=== PATIENT | male | born 1975 | race Caucasian/White ===

== ENCOUNTER 2025-01-15 16:12 | Emergency (ER) | payer OTHER ==
[~2025-01-15] VITALS: Ht 180.3 cm; Wt 129.3 kg
[2025-01-15] MEDS ORDERED: LISINOPRIL20 MG PO (16:20)
[2025-01-15] MEDS ORDERED: OMEPRAZOLE MAGN20 MG PO (16:21)
[2025-01-15] MEDS ORDERED: GABAPENTIN600 MG PO (16:21)
[2025-01-15] MEDS ORDERED: XARELTO1 EACH PO (16:22)
[2025-01-15] MEDS ORDERED: HYDROXYCHLOROQ200 M1 PO (16:23)
[2025-01-15] MEDS ORDERED: IOHEXOL 300 MG/ML 100 ML VIAL IV ONE (16:45)
[2025-01-15 16:57] LABS: BASO % 0.5 % (0.0-1.0); EOS # 0.2 10*3/uL (0.0-0.4); EOS % 1.9 % (1.0-4.0); HEMATOCRIT 41.8 % (42.0-52.0); MEAN CELL VOLUME 99.5 fl (80.0-94.0); MEAN CORPUSCULAR HGB 33.6 pg (27.0-31.0); MEAN CORPUSCULAR HGB CONC 33.7 g/dl (33.0-37.0); MEAN PLATELET VOLUME 9.7 fl (9.6-12.3); MONO # 0.6 10*3/uL (0.1-1.0); MONO % 7.4 % (3.0-9.0); NEUT # 6.3 10*3/uL (2.3-7.9); NEUT % 73.4 % (47.0-73.0); PLATELET COUNT AUTOMATED 277 10*3/uL (130-400); RED CELL DISTRI WIDTH 13.4 % (0-14.5); WHITE BLOOD COUNT 8.5 10*3/uL (4.8-10.8)
[2025-01-15 17:34] LABS: BILIRUBIN Negative (Negative); BLOOD Negative (Negative); CLARITY Cloudy (Clear); COLOR Yellow (Yellow); GLUCOSE Negative (Negative); KETONE Trace (Negative); LEUKO ESTERASE 3+ (Negative); NITRITE Negative (Negative); PH 5.5 (4.5-8.0)
[2025-01-15 17:42] LABS: ACT PARTIAL THROMBO TIME 27.9 SECONDS (20.0-32.1)
[2025-01-15 17:45] LABS: ALKALINE PHOSPHATASE 72 U/L (46-116); BUN 9 mg/dl (9-23); CHLORIDE 108 mmol/L (98-107); LIPASE 175 U/L (12-53); POTASSIUM 3.8 mmol/L (3.4-5.1); SGPT/ALT 7 U/L (5-49); TOTAL PROTEIN 7.3 gm/dL (6.0-8.0)
[2025-01-15 17:49] LABS: BACTERIA 1+; RBC 0-2 rbc/hpf (0-2); WBC 51-100 wbc/hpf (0-5)
[2025-01-15] MEDS ORDERED: metroNIDAZOLE 500 MG TAB PO ONE (17:55)
[2025-01-15] MEDS ORDERED: cefTRIAXone Sodium 1 GM/10 ML SYR IV ONE (17:55)
[2025-01-15] MEDS ORDERED: SUCRALFATE 1 GM TAB PO ONE (18:55)
[2025-01-15] MEDS ORDERED: Pantoprazole Sodium 40 MG TAB PO ONE (18:55)
[2025-01-15] MEDS ORDERED: VIBRAMYCIN100 MG PO (19:08)
[2025-01-15] MEDS ORDERED: CARAFATE1 G1 PO (19:08)
[2025-01-15] MEDS ORDERED: PROTONIX40 MG PO (19:08)
== END 2025-01-15 19:39 | disposition home or self-care (01) ==
LOC: ED 16:12
PROVIDERS: Internal Medicine
DX: K29.70 Gastritis, unspecified, without bleeding (principal); N39.0 Urinary tract infection, site not specified; Z79.899 Other long term (current) drug therapy

== ENCOUNTER 2025-04-29 17:22 | Inpatient (IN) | payer SELFPAY ==
[~2025-04-29] VITALS: Ht 180.3 cm; Wt 129.9 kg
[~2025-04-29 17:22] MED LIST: CARAFATE1 G1 PO; GABAPENTIN600 MG PO; HYDROXYCHLOROQ200 M1 PO; LISINOPRIL20 MG PO; OMEPRAZOLE MAGN20 MG PO; PROTONIX40 MG PO; VIBRAMYCIN100 MG PO; XARELTO1 EACH PO
[2025-04-29 17:28] VITALS: BP 139/91
[2025-04-29] MEDS ORDERED: Ondansetron Hydrochloride 4 MG/2 ML VIAL IV ONE (17:40)
[2025-04-29 17:56] LABS: MEAN CORPUSCULAR HGB 38.9 pg (27.0-31.0); NUCLEATED RED BLOOD CELL 0.0 % (0.0-0.0); NUCLEATED RED BLOOD CELL 0.0 10*3/uL (0.0-0.0)
[2025-04-29 18:11] LABS: MEAN CELL VOLUME 110.2 fl (80.0-94.0); MEAN PLATELET VOLUME 9.7 fl (9.6-12.3); PLATELET COUNT AUTOMATED 93 10*3/uL (130-400); RED CELL DISTRI WIDTH 16.3 % (0-14.5)
[2025-04-29 18:13] LABS: MANUAL DIFF REFLEX YES
[2025-04-29 18:15] LABS: BUN 12 mg/dl (9-23); CPK 31 U/L (34-171)
[2025-04-29 18:17] LABS: PLATELET SUFFICIENCY LOW (NORMAL)
[2025-04-29] MEDS ORDERED: CALCIUM (TUMS) 500MG PO ONE (18:25)
[2025-04-29] MEDS ORDERED: MAGNESIUM SULFATE 50 ML IV ONE (18:25)
[2025-04-29] MEDS ORDERED: HYDROmorphONE Hydrochloride 0.5 MG/0.5 ML SYRINGE IV ONE (19:35)
[2025-04-29] MEDS ORDERED: AZITHROMYCIN 250 ML IV ONE (19:40)
[2025-04-29] MEDS ORDERED: SODIUM CHLORIDE 0.9% 1,000 ML IV SCH ×2 (19:45→20:50)
[2025-04-29 20:02] VITALS: BP 147/90
[2025-04-29] MEDS ORDERED: ACETAMINOPHEN 650 MG SUPP R PRN (20:40)
[2025-04-29] MEDS ORDERED: BISACODYL 5 MG TAB PO PRN (20:40)
[2025-04-29] MEDS ORDERED: Ondansetron Hydrochloride 4 MG/2 ML VIAL IV PRN (20:40)
[2025-04-29] MEDS ORDERED: BISACODYL 10 MG SUPP R PRN (20:40)
[2025-04-29] MEDS ORDERED: TEMAZEPAM 15 MG CAP PO PRN (20:40)
[2025-04-29] MEDS ORDERED: ACETAMINOPHEN 325 MG TAB PO PRN (20:40)
[2025-04-29] MEDS ORDERED: Acetaminophen/Hydrocodone 5 MG/325 MG TABLET PO PRN (20:40)
[2025-04-29] MEDS ORDERED: Albuterol Sulf/Ipratropium 3 ML VIAL NEB PRN (20:50)
[2025-04-29] MEDS ORDERED: hydrOXYzine 50 MG CAP PO PRN (20:50)
[2025-04-29] MEDS ORDERED: FOLIC ACID 1 MG TAB PO ONE (20:50)
[2025-04-29] MEDS ORDERED: Dicyclomine Hydrochloride 20 MG TAB PO PRN (20:50)
[2025-04-29] MEDS ORDERED: MAGNESIUM SULFATE 100 ML IV ONE (20:50)
[2025-04-29] MEDS ORDERED: METHOCARBAMOL 750 MG TAB PO PRN (20:50)
[2025-04-29] MEDS ORDERED: diazePAM 10 MG/2 ML SYR IV PRN (20:55)
[2025-04-29 21:43] VITALS: BP 169/88
[2025-04-29] MEDS ORDERED: RIVAROXABAN 15 MG TAB PO SCH (21:50)
[2025-04-29] MEDS ORDERED: GUAIFENESIN 600 MG TAB ER PO SCH (22:00)
[2025-04-29 22:30] VITALS: BP 157/99
[2025-04-29] MEDS ORDERED: TIZANIDINE HCL4 MG PO (23:11)
[2025-04-30 07:20] LABS: ACT PARTIAL THROMBO TIME 31.9 SECONDS (20.0-32.1)
[2025-04-30 07:48] LABS: VITAMIN D, 25-HYDROXY 25.3 ng/mL (30-100)
[2025-04-30 08:00] VITALS: BP 153/84
[2025-04-30 08:08] LABS: MEAN CORPUSCULAR HGB 38.8 pg (27.0-31.0); MEAN PLATELET VOLUME 9.3 fl (9.6-12.3); NUCLEATED RED BLOOD CELL 0.0 % (0.0-0.0); NUCLEATED RED BLOOD CELL 0.0 10*3/uL (0.0-0.0); PLATELET COUNT AUTOMATED 76 10*3/uL (130-400); RED CELL DISTRI WIDTH 17.0 % (0-14.5)
[2025-04-30 08:13] LABS: MANUAL DIFF REFLEX YES; MEAN CELL VOLUME 113.7 fl (80.0-94.0)
[2025-04-30 08:23] LABS: PLATELET SUFFICIENCY LOW (NORMAL)
[2025-04-30 08:41] LABS: BUN 7 mg/dl (9-23); FREE T4 1.08 ng/dl (0.89-1.76); LDL CHOLESTEROL 32 mg/dL (9-159); SGPT/ALT 29 U/L (5-49)
[2025-04-30] MEDS ORDERED: LISINOPRIL 20 MG TAB PO SCH (10:00)
[2025-04-30] MEDS ORDERED: GABAPENTIN 600 MG TAB PO SCH (10:00)
[2025-04-30] MEDS ORDERED: MULTIVITAMIN 1 TAB TAB PO SCH (10:00)
[2025-04-30] MEDS ORDERED: CALCIUM (TUMS) 500MG PO PRN (11:05)
[2025-04-30 12:00] VITALS: BP 139/74
[2025-04-30 16:00] VITALS: BP 139/74
[2025-04-30] MEDS ORDERED: SODIUM CHLORIDE 0.9% 100 ML BAG IV ONE (18:35)
[2025-04-30] MEDS ORDERED: IOHEXOL 350 MG/ML 100 ML VIAL IV ONE (18:35)
[2025-04-30 20:00] VITALS: BP 132/79
[2025-04-30] MEDS ORDERED: AZITHROMYCIN 250 ML IV SCH (20:00)
[2025-05-01] VITALS: BP 160/88
[2025-05-01 06:04] LABS: BUN 10 mg/dl (9-23)
[2025-05-01 06:05] LABS: MEAN CELL VOLUME 115.8 fl (80.0-94.0); MEAN CORPUSCULAR HGB 38.7 pg (27.0-31.0); MEAN PLATELET VOLUME 9.5 fl (9.6-12.3); NUCLEATED RED BLOOD CELL 0.0 % (0.0-0.0); NUCLEATED RED BLOOD CELL 0.0 10*3/uL (0.0-0.0); PLATELET COUNT AUTOMATED 76 10*3/uL (130-400); RED CELL DISTRI WIDTH 17.1 % (0-14.5)
[2025-05-01 07:49] LABS: MANUAL DIFF REFLEX YES
[2025-05-01 07:53] LABS: PLATELET SUFFICIENCY LOW (NORMAL)
[2025-05-01 08:00] VITALS: BP 152/83
[2025-05-01] MEDS ORDERED: CALCIUM (TUMS) 500MG PO SCH (10:00)
[2025-05-01] MEDS ORDERED: Cholecalciferol 2,000 UNIT TABLET (50 MCG) PO SCH (10:00)
[2025-05-01 12:00] VITALS: BP 147/103
[2025-05-01 16:00] VITALS: BP 117/70
[2025-05-01 20:00] VITALS: BP 155/83
[2025-05-01] MEDS ORDERED: HEPARIN SODIUM 250 ML IV SCH (21:00)
[2025-05-02] VITALS (7 sets, daily range): BP systolic 141–154; BP diastolic 66–91
[2025-05-02 03:39] LABS: MEAN CELL VOLUME 113.6 fl (80.0-94.0); MEAN CORPUSCULAR HGB 38.6 pg (27.0-31.0); MEAN PLATELET VOLUME 9.3 fl (9.6-12.3); NUCLEATED RED BLOOD CELL 0.0 % (0.0-0.0); NUCLEATED RED BLOOD CELL 0.0 10*3/uL (0.0-0.0); PLATELET COUNT AUTOMATED 74 10*3/uL (130-400); RED CELL DISTRI WIDTH 16.6 % (0-14.5)
[2025-05-02 03:43] LABS: MANUAL DIFF REFLEX YES
[2025-05-02 04:06] LABS: BUN 7 mg/dl (9-23)
[2025-05-02 04:27] LABS: PLATELET SUFFICIENCY LOW (NORMAL)
[2025-05-02] MEDS ORDERED: FUROSEMIDE 20 MG/2 ML VIAL IV SCH (10:00)
[2025-05-03] VITALS: BP 142/85
[2025-05-03 05:03] LABS: ACT PARTIAL THROMBO TIME 53.1 SECONDS (20.0-32.1)
[2025-05-03 05:12] LABS: BUN 9 mg/dl (9-23)
[2025-05-03 06:29] LABS: MEAN CELL VOLUME 115.2 fl (80.0-94.0); MEAN CORPUSCULAR HGB 38.4 pg (27.0-31.0); MEAN PLATELET VOLUME 9.9 fl (9.6-12.3); NUCLEATED RED BLOOD CELL 0.0 % (0.0-0.0); NUCLEATED RED BLOOD CELL 0.0 10*3/uL (0.0-0.0); PLATELET COUNT AUTOMATED 96 10*3/uL (130-400); RED CELL DISTRI WIDTH 16.5 % (0-14.5)
[2025-05-03 06:42] LABS: MANUAL DIFF REFLEX YES
[2025-05-03 08:00] VITALS: BP 142/77
[2025-05-03 08:18] LABS: PLATELET SUFFICIENCY LOW (NORMAL)
[2025-05-03 12:00] VITALS: BP 142/75
[2025-05-03 16:00] VITALS: BP 132/68
[2025-05-03] MEDS ORDERED: WARFARIN SODIUM 5 MG TAB PO SCH (18:00)
[2025-05-03 20:00] VITALS: BP 158/92
[2025-05-04] VITALS: BP 153/88
[2025-05-04 06:25] LABS: MEAN CELL VOLUME 114.7 fl (80.0-94.0); MEAN CORPUSCULAR HGB 37.8 pg (27.0-31.0); MEAN PLATELET VOLUME 10.1 fl (9.6-12.3); NUCLEATED RED BLOOD CELL 0.0 % (0.0-0.0); NUCLEATED RED BLOOD CELL 0.0 10*3/uL (0.0-0.0); PLATELET COUNT AUTOMATED 115 10*3/uL (130-400); RED CELL DISTRI WIDTH 16.5 % (0-14.5)
[2025-05-04 06:30] LABS: MANUAL DIFF REFLEX YES
[2025-05-04 06:44] LABS: BUN 9 mg/dl (9-23)
[2025-05-04 06:49] LABS: BASOPHILS 3 % (0-1)
[2025-05-04 06:50] LABS: PLATELET SUFFICIENCY LOW (NORMAL)
[2025-05-04] MEDS ORDERED: POTASSIUM CHLORIDE 20 MEQ TAB PO ONE (07:25)
[2025-05-04 08:00] VITALS: BP 152/90
[2025-05-04] MEDS ORDERED: FUROSEMIDE 40 MG/4 ML VIAL IV SCH (10:00)
[2025-05-04 12:00] VITALS: BP 156/87
[2025-05-04 16:00] VITALS: BP 127/74
[2025-05-04 20:00] VITALS: BP 154/80
[2025-05-05 04:45] VITALS: BP 143/88
[2025-05-05 05:31] LABS: BUN 8 mg/dl (9-23)
[2025-05-05 06:03] LABS: MEAN CELL VOLUME 113.2 fl (80.0-94.0); MEAN CORPUSCULAR HGB 37.9 pg (27.0-31.0); MEAN PLATELET VOLUME 10.6 fl (9.6-12.3); NUCLEATED RED BLOOD CELL 0.0 % (0.0-0.0); NUCLEATED RED BLOOD CELL 0.0 10*3/uL (0.0-0.0); PLATELET COUNT AUTOMATED 131 10*3/uL (130-400); RED CELL DISTRI WIDTH 16.6 % (0-14.5)
[2025-05-05 06:08] LABS: MANUAL DIFF REFLEX YES
[2025-05-05 06:43] LABS: BASOPHILS 1 % (0-1)
[2025-05-05 06:44] LABS: PLATELET SUFFICIENCY NORMAL (NORMAL)
[2025-05-05 08:00] VITALS: BP 153/97
[2025-05-05] MEDS ORDERED: LASIX40 MG PO ×2 (10:56→11:51)
[2025-05-05] MEDS ORDERED: ENOXAPARIN150 MG/1 M SC (10:56)
[2025-05-05] MEDS ORDERED: WARFARIN SOD5 MG PO ×2 (10:56→11:51)
[2025-05-05] MEDS ORDERED: KLOR-CON 1010 ME1 PO ×2 (10:56→11:51)
[2025-05-05] MEDS ORDERED: VITAMIN D350 MCG PO ×2 (10:56→11:51)
[2025-05-05 12:00] VITALS: BP 141/79
== END 2025-05-05 12:20 | disposition home or self-care (01) | DRG 871 ==
LOC: ED 17:22 → EDHOLD 19:45 → 4E 19:45 → EDHOLD 20:54 → 4E 22:00
PROVIDERS: Emergency Medicine; Family Medicine; Student in an Organized Health Care Education/Training Program; ADMIT Internal Medicine; ATTEND Internal Medicine
DX: A41.9 Sepsis, unspecified organism (principal); J69.0 Pneumonitis due to inhalation of food and vomit; K85.90 Acute pancreatitis without necrosis or infection, unspecified; F10.139 Alcohol abuse with withdrawal, unspecified; E83.42 Hypomagnesemia; D69.6 Thrombocytopenia, unspecified; D75.89 Other specified diseases of blood and blood-forming organs; E83.51 Hypocalcemia; F17.210 Nicotine dependence, cigarettes, uncomplicated; I10 Essential (primary) hypertension; J44.9 Chronic obstructive pulmonary disease, unspecified; M06.9 Rheumatoid arthritis, unspecified; Z90.49 Acquired absence of other specified parts of digestive tract; Z71.6 Tobacco abuse counseling; Z82.49 Family history of ischemic heart disease and other diseases of the circulatory system; Z79.899 Other long term (current) drug therapy

== ENCOUNTER → 2025-05-08 | Outpatient (CLI) | payer SELFPAY ==
[~2025-05-08] MED LIST changes: +ENOXAPARIN150 MG/1 M SC; +KLOR-CON 1010 ME1 PO; +LASIX40 MG PO; +TIZANIDINE HCL4 MG PO; +VITAMIN D350 MCG PO; +WARFARIN SOD5 MG PO
[2025-05-08 15:08] LABS: MEAN CELL VOLUME 112.9 fl (80.0-94.0); MEAN CORPUSCULAR HGB 37.7 pg (27.0-31.0); MEAN PLATELET VOLUME 10.4 fl (9.6-12.3); NUCLEATED RED BLOOD CELL 0.0 % (0.0-0.0); NUCLEATED RED BLOOD CELL 0.0 10*3/uL (0.0-0.0); PLATELET COUNT AUTOMATED 267 10*3/uL (130-400); RED CELL DISTRI WIDTH 16.2 % (0-14.5)
[2025-05-08 15:09] LABS: MANUAL DIFF REFLEX YES
[2025-05-08 15:37] LABS: BUN 8 mg/dl (9-23); LDL CHOLESTEROL 66 mg/dL (9-159); SGPT/ALT 23 U/L (5-49)
[2025-05-08 15:39] LABS: BASOPHILS 2 % (0-1); PLATELET SUFFICIENCY NORMAL (NORMAL)
== END | disposition home or self-care (01) ==
LOC: LAB 14:54
PROVIDERS: ATTEND Nurse Practitioner Family
DX: I10 Essential (primary) hypertension (principal); I26.99 Other pulmonary embolism without acute cor pulmonale; K21.9 Gastro-esophageal reflux disease without esophagitis; E66.01 Morbid (severe) obesity due to excess calories; Z12.5 Encounter for screening for malignant neoplasm of prostate; F10.10 Alcohol abuse, uncomplicated; F17.200 Nicotine dependence, unspecified, uncomplicated; E83.42 Hypomagnesemia; Z87.01 Personal history of pneumonia (recurrent); Z86.718 Personal history of other venous thrombosis and embolism

== ENCOUNTER → 2025-05-15 | Outpatient (CLI) | payer SELFPAY | END | disposition home or self-care (01) | LOC: RHCWE 14:04 | PROVIDERS: ATTEND Nurse Practitioner Family | DX: I26.99 Other pulmonary embolism without acute cor pulmonale (principal) ==

== ENCOUNTER → 2025-05-22 | Outpatient (CLI) | payer SELFPAY | END | disposition home or self-care (01) | LOC: RHCWE 09:14 | PROVIDERS: ATTEND Nurse Practitioner Family | DX: I26.09 Other pulmonary embolism with acute cor pulmonale (principal) ==

== ENCOUNTER → 2025-06-12 | Outpatient (CLI) | payer MEDICAID | END | disposition home or self-care (01) | LOC: ZRHCWE 14:34 | PROVIDERS: ATTEND Nurse Practitioner Family | DX: I26.09 Other pulmonary embolism with acute cor pulmonale (principal) ==